=== PATIENT | female | born 2000 | race Hispanic/Latino ===

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

== ENCOUNTER 2018-10-01 10:55 | Emergency (ER) | payer OTHER, SELFPAY ==
--- NOTE | 2018-10-01 13:15 | RAD ---
CHEST PA AND LATERAL: 10/01/2018 HISTORY: Cough for three weeks. FINDINGS: The cardiac silhouette and pulmonary vasculature are within normal limits. The lungs are clear. The osseous structures are intact. Surgical clips overly the right upper quadrant. IMPRESSION: No acute cardiopulmonary process. POS: ELIANA
== END 2018-10-01 13:53 | disposition home or self-care (01) ==
LOC: ERS 10:55
DX: J20.9 Acute bronchitis, unspecified (principal)
CPT/HCPCS: 71046

== ENCOUNTER 2020-03-24 10:28 | Emergency (ER) | payer OTHER, SELFPAY ==
[2020-03-25 14:50] LABS: SARS-CoV-2 MS2 Positive; SARS-CoV-2 N Gene Positive; SARS-CoV-2 S Gene Positive; SARS-CoV-2 orf1ab Positive
== END 2020-03-24 10:54 | disposition home or self-care (01) ==
LOC: ERS 10:28
DX: U07.1 COVID-19 (principal); R51 Headache
CPT/HCPCS: 87635; 99284; U0003

== ENCOUNTER → 2020-04-07 | Emergency (ER) | payer SELFPAY | LOC: ERS 13:48 | DX: Z53.21 Procedure and treatment not carried out due to patient leaving prior to being seen by health care provider (principal) ==